=== PATIENT | male | born 1980 | race Caucasian/White ===

== ENCOUNTER 2020-03-26 08:51 | Outpatient (REF) | payer MEDICAID, SELFPAY ==
--- NOTE | 2020-03-26 09:01 | XR_ITS ---
EXAMINATION: XR ELBOW, LEFT CLINICAL INFORMATION: Pain COMPARISON: None TECHNIQUE: AP, lateral, and oblique views of the left elbow. FINDINGS: Bone alignment is normal. No fracture or dislocation is seen. The joint spaces are normal. There is an osteophyte at the triceps tendon insertion to the olecranon. XR/XR elbow LT min 3V IMPRESSION: Small osteophyte at the triceps tendon insertion to the olecranon.
== END 2020-03-26 08:52 | disposition home or self-care (01) ==
LOC: HO.XRAY 08:51
PROVIDERS: Visit Provider Internal Medicine Geriatric Medicine
DX: M25.522 Pain in left elbow (principal)
CPT/HCPCS: 73080

== ENCOUNTER 2020-05-12 12:30 | Emergency (ER) | payer MEDICAID, SELFPAY ==
--- NOTE | 2020-05-12 13:01 | XR_ITS ---
EXAMINATION: XR HAND, RIGHT CLINICAL INFORMATION: Crush injury COMPARISON: None TECHNIQUE: PA, lateral, and oblique views of the right hand. FINDINGS: Specific attention was given to the third digit. Bones are normal anatomic alignment. I do not appreciate any acute fracture or dislocation. There is old bony deformity to the fifth distal metacarpal consistent with an old healed fracture. There is also a subtle bony deformity along the proximal first carpal suggesting old healed injury as well. Soft tissues are unremarkable. No radiopaque foreign body seen. XR/XR hand RT 2V IMPRESSION: No acute fracture or dislocation.
--- NOTE | 2020-05-12 13:04 | ED_ITS ---
HPI - Extremity Problem General Chief complaint: Extremity Injury, Upper Stated complaint: HAND PAIN Time Seen by Provider: 05/12/20 13:01 Source: patient Mode of arrival: ambulatory Limitations: no limitations History of Present Illness HPI Narrative: 40-year-old male here with right hand pain. 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 Of note the patient tells me he also has chronic left elbow pain. He tells me he had a previous work injury there and is supposed to see assessment specialist in May. His last x-ray 03/26/2020. No new injury or trauma since then. Patient also complaining of left ear pain which he noticed x2 days. No cough, no ear discharge, no congestion MD Complaint: extremity pain and extremity swelling Onset (ago): hour(s) Pain Consistency: constant Location: right (3rd finger ) Quality: aching and crushing Radiation: none Relieving factors: nothing Exacerbating factors: nothing Associated symptoms: denies other symptoms Related Data Previous Rx's Medication Instructions Recorded amoxicillin 500 mg PO Q12H #20 cap 05/12/20 ibuprofen 600 mg PO Q8H PRN #20 tab 05/12/20 Allergies Allergy/AdvReac Type Severity Reaction Status Date / Time No Known Allergies Allergy Verified 05/12/20 13:01 Review of Systems Review of Systems: Yes all other systems are reviewed and are negative Constitutional: Constitutional: Reports no additional constitutional complaints, Denies body ache(s), Denies chills, Denies fever(s), Denies headache(s) and Denies weakness Eyes: Eyes: Reports no additional eye complaints and Denies change in vision ENT: Reports system reviewed and no additional complaints, except as documented, Denies dizziness, Reports otalgia, Denies headache(s), Denies nasal congestion, Denies nasal discharge and Denies neck pain Cardiovascular: Cardiovascular: Reports no additional cardiovascular complaints, Denies chest pain, Denies leg edema and Denies dyspnea Respiratory: Respiratory: Reports no additional respiratory complaints, Denies cough and Denies dyspnea Gastrointestinal: Gastrointestinal: Reports no additional gastrointestinal complaints, Denies abdominal pain, Denies diarrhea, Denies nausea and Denies vomiting Genitourinary: Genitourinary: Denies urinary incontinence Musculoskeletal: Musculoskeletal: Reports no additional musculoskeletal complaints, Denies back pain, Reports arthralgias, Denies joint swelling, Denies neck pain, Denies numbness and Denies tingling Integumentary/Breasts: Skin/Breast: Reports system reviewed and no additional complaints, except as docu and Denies rash Neurologic: Reports system reviewed and no additional complaints, except as documented, Denies Abnormal speech present, Denies dizziness, Denies headache(s), Denies numbness, Denies tingling and Denies weakness PMF Past Medical History Attestation statement: The following information was validated with the patient. Source: old records reviewed and nursing notes reviewed Social History Social History Alcohol intake: never Smoking Status: Never smoker Use of substances other than those prescribed or required for medical reasons: No Advance Directives: No Advance Directives Information Provided: Yes Physical Exam Vital Signs: Vital Signs: Last Vital Signs Temp 98.2 F 05/12/20 13:05 Pulse 72 05/12/20 13:05 Resp 18 05/12/20 13:05 BP 125/74 05/12/20 13:05 Pulse Ox 98 05/12/20 13:05 Body Mass Index 28.3 Const: General: cooperative, healthy appearing, comfortable and no acute distress Orientation/consciousness: patient oriented x3 Limitations: no limitations HENMT: Head: Yes normal to inspection Ears: hearing grossly normal bilaterally and TM abnormal (Left) bulging, erythematous and with loss of landmarks General nose exam: Normal external nose present Face and sinus: Yes normal facial exam Mouth: Normal oral and palatal mucosa present Throat: Yes posterior oropharynx normal Eyes: General: appearance normal, both eyes and all related structures Pupils: Equal, round and reactive pupils present Neck: Neck: Yes normal visual inspection Chest: Chest palpation & inspection: normal inspection of the chest Resp: Effort & Inspection: normal respiratory effort Auscultation: clear to auscultation bilaterally Cardio: Rate: regular rate Rhythm: regular rhythm Peripheral pulses: Peripheral pulses 2+ throughout GI: Inspection: Yes normal to inspection Palpation (GI): Soft to palpation and nontender Auscultation: normal bowel sounds Back/Spine/Pelvis: Thoracic/Lumbar Spine: thoracic and lumbar spine normal to inspection Skin: General skin exam: no rashes or lesions noted Neuro: General: patient oriented x3, no focal motor deficits and normal sensation to monofilament Cranial nerves: Yes Equal, round and reactive pupils present Cognition (Neuro): normal cognition Speech: No Abnormal speech present Gait exam (Neuro): Normal gait present Motor exam (neuro): 5/5 motor strength present throughout Extrem: Other: Third digit right hand with moderate swelling and tenderness throughout the digit. Normal cap refill. No numbness or tingling or loss of sensation. Patient is able to flex the finger but does have pain. No difficulty extending the finger Lateral left elbow tenderness which is mild. Full range of motion. No swelling, redness or warmth General: Yes normal to inspection Course Course Course Narrative: Right hand 3rd digit finger pain status post injury at work. Will check imaging. Chronic left elbow pain from a previous work injury. No new injury or trauma. Has pending appointment with Orthopedics. Reviewed x-ray from 03/26/2020 which shows Small osteophyte at the triceps tendon insertion to the olecranon. No need for imaging with no new trauma. Recommended continue to follow up with repeated, supportive care at home. 1430-imaging negative. Likely contusion. Left AOM on exam. Reviewed findings with the patient. Reviewed worrisome signs and symptoms and when to return to the emergency department. Comfortable discharge home. MDM - Extremity (Nontraumatic) Medical Records Attestation: I reviewed the patient's medical records. Lab Data Attestation: I reviewed the patient's lab results. Imaging Data hand: Attestation: I personally reviewed and interpreted this imaging study as follows: Radiologist's impression: EXAMINATION: XR HAND, RIGHT CLINICAL INFORMATION: Crush injury COMPARISON: None TECHNIQUE: PA, lateral, and oblique views of the right hand. FINDINGS: Specific attention was given to the third digit. Bones are normal anatomic alignment. I do not appreciate any acute fracture or dislocation. There is old bony deformity to the fifth distal metacarpal consistent with an old healed fracture. There is also a subtle bony deformity along the proximal first carpal suggesting old healed injury as well. Soft tissues are unremarkable. No radiopaque foreign body seen. XR/XR hand RT 2V IMPRESSION: No acute fracture or dislocation. Discharge Plan Discharge Clinical Impression: Otitis media Qualifiers: Otitis media type: unspecified Chronicity: acute Qualified Code(s): H66.90 - Otitis media, unspecified, unspecified ear Contusion Qualifiers: Encounter type: initial encounter Contusion area: hand Laterality: right Qualified Code(s): S60.221A - Contusion of right hand, initial encounter Patient Disposition: Home, Self-Care Instructions: Ear Infection (ED), Contusion in Adults (ED) Additional Instructions: iCE TO THE AREA Prescriptions: New amoxicillin 500 mg capsule 500 mg PO Q12H Qty: 20 RF: 0 ibuprofen 600 mg tablet 600 mg PO Q8H PRN (Reason: pain) Qty: 20 RF: 0 Referrals: Lori Tee [employer] [Primary Care Provider] - 2 days Stand Alone Forms: Work/School Release Interventions: ED Discharge Assessment Last Done: 05/12/20 14:40 Discharge Date/Time: 05/12/20 14:41
[2020-05-12 13:05] VITALS: BP 125/74; PULSE 72; RESP 18; TEMP 36.8; O2SAT 98; BMI 28.3
== END 2020-05-12 14:41 | disposition home or self-care (01) ==
PROVIDERS: Emergency Provider Emergency Medicine; PCP Nurse Practitioner Primary Care
DX: S60.221A Contusion of right hand, initial encounter (principal); H66.90 Otitis media, unspecified, unspecified ear; H92.02 Otalgia, left ear; M79.641 Pain in right hand; Y29.XXXA Contact with blunt object, undetermined intent, initial encounter; Y93.9 Activity, unspecified; Y92.9 Unspecified place or not applicable; Y99.0 Civilian activity done for income or pay
CPT/HCPCS: 73120; 99283

== ENCOUNTER → 2020-06-04 08:59 | Outpatient (BNVA) | payer MEDICAID, SELFPAY | PROVIDERS: PCP Nurse Practitioner Primary Care; Referring Provider Nurse Practitioner Primary Care; Visit Provider Orthopaedic Surgery | DX: M25.522 Pain in left elbow (principal); S60.221A Contusion of right hand, initial encounter | CPT/HCPCS: 99202 ==

== ENCOUNTER 2020-06-26 17:10 | Outpatient (REF) | payer MEDICAID, SELFPAY ==
--- NOTE | 2020-06-26 | MR_ITS ---
EXAMINATION: MR ELBOW WITHOUT CONTRAST, LEFT CLINICAL INFORMATION: Left elbow pain for 5 months. Patient reports a recent injury. COMPARISON: XR left elbow 03/26/2020. TECHNIQUE: MRI of the left elbow was performed using routine sequences on a high-field scanner. FINDINGS: Ulnar collateral ligament: Intact. Common flexor tendon: There is a small focal area of increased T2 signal at the origin of the common flexor tendon suggesting mild tendinosis. Radial collateral ligament: Intact. Common extensor tendon: There is focal increased T2 signal at the origin of the common extensor tendon consistent with tendinosis. There is also a tiny interstitial tear best seen on the coronal images, measuring 2 mm craniocaudal. Biceps/triceps tendon: Intact. Articular cartilage/bone: Intact. Ulnar nerve: Intact. Joint fluid/soft tissues: Within normal limits. MR/MR elbow LT wo con IMPRESSION: 1. Minor proximal common flexor tendinosis. 2. Mild proximal common extensor tendinosis with tiny interstitial tear.
== END 2020-06-26 17:11 | disposition home or self-care (01) ==
LOC: HO.MRI 17:10
PROVIDERS: Visit Provider Orthopaedic Surgery
DX: M25.522 Pain in left elbow (principal)
CPT/HCPCS: 73221

== ENCOUNTER → 2020-07-04 10:42 | Outpatient (BNVA) | payer MEDICAID, SELFPAY | PROVIDERS: PCP Nurse Practitioner Primary Care; Visit Provider Orthopaedic Surgery | DX: M77.12 Lateral epicondylitis, left elbow (principal); M25.522 Pain in left elbow; S60.221A Contusion of right hand, initial encounter | CPT/HCPCS: 20551; J1020 ==

== ENCOUNTER 2020-07-19 09:49 | Outpatient (REF) | payer MEDICAID, SELFPAY ==
--- NOTE | 2020-07-19 09:52 | EMG_ITS ---
Left median and ulnar motor and sensory studies were performed. Left radial sensory study was performed. Left median and lateral antecubital brachial sensory studies were performed and needle examination was performed and some muscles. IMPRESSION: No evidence of entrapment neuropathy in left hand. There was evidence of mild left lower cervical radiculopathy. MD XIMENA Manrique/KIEL / [id number]
== END 2020-07-19 09:50 | disposition home or self-care (01) ==
LOC: HO.NEURO 09:49
PROVIDERS: PCP Nurse Practitioner Primary Care; Visit Provider Orthopaedic Surgery
DX: M25.522 Pain in left elbow (principal)
CPT/HCPCS: 95886; 95910

== ENCOUNTER → 2020-07-30 12:39 | Outpatient (BNVA) | payer MEDICAID, SELFPAY | PROVIDERS: Visit Provider Orthopaedic Surgery | DX: M77.12 Lateral epicondylitis, left elbow (principal); M25.522 Pain in left elbow | CPT/HCPCS: 99212 ==

== ENCOUNTER 2020-10-08 11:30 | Outpatient (RCR) | payer MEDICAID, SELFPAY ==
--- NOTE | 2020-08-13 09:53 | MHC.OT.OEV ---
[address] [phone] F: [phone] Occupational Therapy Evaluation Diagnosis: Left Lateral Epicondylitis Date of Onset: 12/24/19 Attending Provider: Dr. Lopez Prescribed Treatment: Laura and Akil SAUCEDO Follow Up Appointment: History of Current Condition: Pt was at work, removing cargo pallets, reported onset of worsening pain in his left elbow, went to [facility] but was not referred to OT at that time. Now referred from [facility]. Pt also reports issues in his right hand and left hand at the time, still reports pain present in these areas too. Patient Goals: To get better so he can work Hand Dominance: Right Prior Level of Function and Occupation Self Care, Employment, Leisure: Unemployed/Disability Living Situation, Family and/or Social Support: Lives alone, Independent Current Level of Function and Occupation Self Care, Employment, Leisure: Some difficulty cooking meals and with bathing, bothers him to bend his elbow and with forceful use Sleep: Cramping down his lower left arm when sleeping, numbness in left hand Driving: Ind w/ driving, uses right hand Pain Assessment Pain Score: 9 Pain Scale Used: Numeric (0 - 10) Pain Location and Description: Constant pain in left elbow, points to lateral and medial epicondyle, radiates down forearm Tender to palpate left lateral elbow Aggravating Factors: Pain w/ straightening and bending elbow Alleviating Factors: Pain patch to left lateral elbow (does not recall the name) Nerve assessment Ulnar Nerve: WFL Median Nerve: WFL Radial Nerve: WFL Sensory Assessment Comments: Pt reports nighttime numbness radiating down forearm and into digits Edema Assessment Upper Extremity: WNL Dexterity Assessment Dexterity: WFL Special Tests Comments: Pain in left lat epi w/ resisted wrist ext AROM(PROM) Strength Shoulder Flexion: Extension: Abduction: Internal Rotation: External Rotation: Comments: WNL Flexion: Extension: Abduction: Internal Rotation: External Rotation: Comments: Elbow Flexion: R 145 L 145 Extension: R 0 L 10 Pronation: Supination: Comments: Flexion: Extension: Pronation: Supination: Comments: Wrist Flexion: Extension: Ulnar Deviation: Radial Deviation: Comments: WNL Flexion: B/L 5/5 Extension: B/L 5/5 Ulnar Deviation: Radial Deviation: Comments: Digits Index MCP: PIP: DIP: Long MCP: PIP: DIP: Ring MCP: PIP: DIP: Small MCP: PIP: DIP: Comments: Gross Grasp: R 95 L 40 Lateral Pinch: Two-Point Pinch: Three-Jaw Devaughn: Comments: Left tested with elbow flex (40lb) and ext (5lb w/ high pain) Patient Education Primary Language: Sponge Packer Required: Yes Current Knowledge: Understands information with skills for self-management Teaching Method: Audio/Video Demonstration Handouts Verbal Education Needs Identified on Evaluation: ADL's Disease Information Equipment Use Exercise Pain Safety How did patient/family demonstrate learning? Patient demonstrates Patient verbalizes Barriers to Learning: None Readiness for Learning: Accepting Who was educated? 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 He states he went to [facility] initially and recently was referred to [facility] and now to OT for conservative treatment of lateral epicondylitis. On assessment, he notes pain in left lateral elbow, radiating posteriorly to olecronon and distally to forearm. Symptoms worse with heavy use and elbow extension, also with forearm and hand numbness at nighttime. Elbow and wrist strength WNL, but left gross grasp is significantly impaired and worse w/ elbow in extension. He has been given counter force brace from ortho and will benefit from cont'd OT services for progression of strengthening w/ focus on activity modication and joint protection, pt's ultimate goal is to return to work. STG Duration: 2 wks Short Term Goals: Ind w CFB wear Ind w/ nighttime modifications for improved sleep Ind w/ HEP Pt to report <5/10 resting pain in left arm/elbow Left gross grasp >50lb LTG Duration: 4 wks Prison Goals: Full elbow extension <2/10 pain at rest <4/10 pain w/ moderate activity Pt to demo lift and carry 25lb box w/ ease Gross grasp >80lb Ind w/ progression of eccentric strengthening program Frequency and Duration: The patient will be seen 2/xwk for 4 weeks Treatment Plan: Therapeutic Exercise Therapeutic Activity Home Exercise Program Splinting Patient Education Edema Control ADL Training Ultrasound Iontophoresis MHP Cold Packs Soft Tissue Mobilization Kinesiotaping Nighttime resting wrist splint PRN Electronically Signed By: Ludivina Zapka, OTR/L Please sign and return to therapist, Thank you for your referral.
--- NOTE | 2020-10-08 13:09 | MHC.OT.DC ---
[address] [phone] F: [phone] Occupational Therapy Discharge Note Provider: Dr Lopez Diagnosis: Left Lateral Epicondylitis Date of Evaluation: 08/13/20 Date of Discharge: 10/08/20 Treatments to Date: 14 Cancellations to Date: 0 No Shows to Date: 0 Discharge Status: Independent with HEP Recommend MD Follow-up Discharge Summary: Rodney has some improvements in pain and strength, but consistently reports moderate pain in left lateral and medial epicondyles, he states the pain comes and goes. Reports good follow through w/ HEP and CFB wear. We have reached a plateau in tx at this time, he is scheduled to see a chiropractor this week. Recommend refer back to ortho if no change in the next month w/ chiropractor trial. Electronically Signed By: LUIS ARMANDO Buitrago/Randy Reviewed/agree with student documentation: N/A Therapist: Please Sign and return to therapist, thank you for your referral.
== END 2020-10-08 13:11 | disposition other institution (70) ==
LOC: HO.OT 11:30
PROVIDERS: PCP Nurse Practitioner Primary Care; Visit Provider Orthopaedic Surgery
DX: M77.12 Lateral epicondylitis, left elbow (principal)
CPT/HCPCS: 29125; 97033; 97035; 97110; 97140; 97165; 97760

== ENCOUNTER 2021-01-21 13:08 | Outpatient (RCR) | payer MEDICAID, SELFPAY | END 2021-01-23 11:00 | disposition home or self-care (01) | LOC: HO.OT 13:08 | PROVIDERS: PCP Nurse Practitioner Primary Care; Visit Provider Nurse Practitioner Primary Care | DX: M77.12 Lateral epicondylitis, left elbow (principal) | CPT/HCPCS: 97110; 97166 ==

== ENCOUNTER 2021-02-04 07:48 | Outpatient (RCR) | payer MEDICAID, SELFPAY | END 2021-09-24 10:51 | disposition home or self-care (01) | LOC: HO.OT 07:48 | PROVIDERS: PCP Nurse Practitioner Primary Care; Visit Provider Nurse Practitioner Primary Care | DX: M79.641 Pain in right hand (principal); M25.511 Pain in right shoulder; M25.512 Pain in left shoulder; M54.9 Dorsalgia, unspecified | CPT/HCPCS: 97165 ==

== ENCOUNTER 2021-02-14 11:59 | Outpatient (REF) | payer MEDICAID, SELFPAY ==
--- NOTE | ~2021-02-14 | XR_ITS ---
EXAMINATION: XR SHOULDER, RIGHT XR SHOULDER, LEFT CLINICAL INFORMATION: Pain COMPARISON: None TECHNIQUE: 4 views of the right shoulder 4 views left shoulder FINDINGS: RIGHT: No acute visible fracture or dislocation. Joint spaces and alignment are maintained. Soft tissues are unremarkable. Visualized portions of the right chest are unremarkable. LEFT: No acute visible fracture or dislocation. Joint spaces and alignment are maintained. Soft tissues are unremarkable. Visualized portions of the left chest are unremarkable. XR/XR shoulder LT min 2V IMPRESSION: No acute visible fracture or dislocation.
--- NOTE | ~2021-02-14 | XR_ITS ---
EXAMINATION: XR SHOULDER, RIGHT XR SHOULDER, LEFT CLINICAL INFORMATION: Pain COMPARISON: None TECHNIQUE: 4 views of the right shoulder 4 views left shoulder FINDINGS: RIGHT: No acute visible fracture or dislocation. Joint spaces and alignment are maintained. Soft tissues are unremarkable. Visualized portions of the right chest are unremarkable. LEFT: No acute visible fracture or dislocation. Joint spaces and alignment are maintained. Soft tissues are unremarkable. Visualized portions of the left chest are unremarkable. XR/XR shoulder RT min 2V IMPRESSION: No acute visible fracture or dislocation.
== END 2021-02-14 12:00 | disposition home or self-care (01) ==
LOC: HO.XRAY 11:59
PROVIDERS: PCP Nurse Practitioner Primary Care; Visit Provider Nurse Practitioner Primary Care
DX: M25.511 Pain in right shoulder (principal); M25.512 Pain in left shoulder
CPT/HCPCS: 73030

== ENCOUNTER 2021-03-14 15:00 | Outpatient (RCR) | payer MEDICAID, SELFPAY | END 2021-03-20 15:00 | disposition home or self-care (01) | LOC: HO.PT 15:00 | PROVIDERS: PCP Nurse Practitioner Primary Care; Visit Provider Nurse Practitioner Primary Care | DX: M79.641 Pain in right hand (principal) | CPT/HCPCS: 97110; 97112; 97162; 97530 ==

== ENCOUNTER 2021-05-01 15:00 | Outpatient (RCR) | payer MEDICAID, SELFPAY | END 2021-08-20 14:10 | disposition home or self-care (01) | LOC: HO.PT 15:00 | PROVIDERS: PCP Nurse Practitioner Primary Care; Visit Provider Physician Assistant | DX: M77.8 Other enthesopathies, not elsewhere classified (principal); M25.512 Pain in left shoulder; M25.511 Pain in right shoulder | CPT/HCPCS: 97110; 97161 ==

== ENCOUNTER 2021-07-05 15:35 | Outpatient (REF) | payer MEDICAID, SELFPAY ==
--- NOTE | ~2021-07-05 | US_ITS ---
EXAMINATION: US SCROTUM CLINICAL INFORMATION: Right testicular swelling, left testicular pain. COMPARISON: None TECHNIQUE: A sonogram of the scrotum was performed assessing amos-scale appearance and color Doppler flow. Spectral Doppler analysis of the arterial and venous flow were performed in the testes bilaterally. FINDINGS: RIGHT: Right testicle measures 4.0 x 2.5 x 2.9 cm, volume 15.5 mL. No focal testicular parenchymal lesions are visualized. Spectral Doppler analysis of the arterial and venous flow is normal in the right testis. Right epididymal head is normal in size. No right varicocele is seen. There is a right hydrocele. Right epididymal Doppler flow is normal. LEFT: Left testicle measures 3.3 x 2.2 x 2.4 cm, volume 9.1 mL. No focal testicular parenchymal lesions are visualized. Spectral Doppler analysis of the arterial and venous flow is normal in the left testis. Left epididymal head is normal in size. No left varicocele is seen. There is a small left hydrocele. Left epididymal Doppler flow is normal. US/US scrotum IMPRESSION: Bilateral hydroceles, right greater than left.
== END 2021-07-05 15:36 | disposition home or self-care (01) ==
LOC: HO.US 15:35
PROVIDERS: Visit Provider Nurse Practitioner Family
DX: N50.812 Left testicular pain (principal)
CPT/HCPCS: 76870

== ENCOUNTER 2023-01-20 15:57 | Outpatient (REF) | payer MEDICAID, SELFPAY ==
[2023-01-20 17:30] LABS: MANUAL DIFF FLAG NO
[2023-01-20 17:35] LABS: Basophils Absolute Auto 0.1 X10*3/uL (0.0-0.2); Basophils Percent Auto 1.2 % (0-2); Eosinophils Absolute Auto 0.2 X10*3/uL (0.0-0.4); Hematocrit 45.8 % (42.0-52.0); Hemoglobin 15.3 g/dl (14.0-18.0); Imm Gran Abs Auto 0.01 X10*3/uL (0.00-0.03); Imm Gran Pct Auto 0.2 % (0.0-0.4); Lymphocytes Absolute Auto 1.8 X10*3/uL (1.2-4.9); Lymphocytes Percent Auto 30.3 % (20-40); Mean Corpuscular HGB Conc 33.4 g/dl (31.0-36.0); Mean Corpuscular Hemoglobin 30.4 pg (27.0-33.0); Mean Corpuscular Volume 91.1 fL (80.0-98.0); Mean Platelet Volume 9.6 fL (9.4-12.4); Monocytes Absolute Auto 0.6 X10*3/uL (0.1-1.2); Monocytes Percent Auto 9.2 % (2-11); Neutrophils Absolute Auto 3.3 x10*3/uL (2.0-8.3); Neutrophils Percent Auto 55.1 % (45-73); Platelet Count 293 X10*3/uL (160-400); Red Blood Count 5.03 X10*6/uL (4.60-5.80)
[2023-01-20 17:47] LABS: Alanine Aminotransferase 27 U/L (0-40); Albumin Level 4.5 g/dL (3.5-5.0); Alkaline Phosphatase 76 U/L (39-117); Anion Gap 9 (12-20); Aspartate Amino Transferase 45 U/L (5-37); Bilirubin Total 0.5 mg/dL (0.0-1.0); Blood Urea Nitrogen 20 mg/dL (9-16); Carbon Dioxide 29 mmol/L (22-29); Chloride 107 mmol/L (96-108); Estimated Glomerular Filt Rate > 60; Glucose Random 74 mg/dL (60-115); Potassium 3.7 mmol/L (3.3-5.1); Sodium 141 mmol/L (135-145); Total Protein 8.1 g/dL (6.5-8.0)
[2023-01-21 11:13] LABS: Absolute CD3 Count 1237 cells/uL (840-3060); Absolute CD4 Count 700 cells/uL (490-1740); Absolute CD8 Count 526 cells/uL (180-1170); Absolute Lymphocytes 1841 cells/uL (850-3900); CD4 CD8 Ratio 1.33 (0.86-5.00); Percent CD3 Cells 67 % (57-85); Percent CD4 Cells 38 % (30-61); Percent CD8 Cells 29 % (12-42)
[2023-01-21 15:44] LABS: HIV RNA PCR Qn Copies 253 copies/mL (NOT DETECTED)
== END 2023-01-20 15:58 | disposition home or self-care (01) ==
LOC: HO.HHCL 15:57
PROVIDERS: Visit Provider Internal Medicine
DX: B20 Human immunodeficiency virus [HIV] disease (principal)
CPT/HCPCS: 36415; 80053; 85025; 86359; 86360; 87536

== ENCOUNTER 2023-06-08 09:29 | Outpatient (REF) | payer MEDICAID, SELFPAY ==
[2023-06-08 09:41] LABS: MANUAL DIFF FLAG NO
[2023-06-08 09:58] LABS: Basophils Absolute Auto 0.1 X10*3/uL (0.0-0.2); Basophils Percent Auto 1.9 % (0-2); Eosinophils Absolute Auto 0.2 X10*3/uL (0.0-0.4); Eosinophils Percent Auto 4.3 % (0-4); Hematocrit 46.5 % (42.0-52.0); Hemoglobin 15.7 g/dl (14.0-18.0); Imm Gran Abs Auto 0.01 X10*3/uL (0.00-0.03); Imm Gran Pct Auto 0.3 % (0.0-0.4); Lymphocytes Absolute Auto 1.3 X10*3/uL (1.2-4.9); Lymphocytes Percent Auto 35.5 % (20-40); Mean Corpuscular HGB Conc 33.8 g/dl (31.0-36.0); Mean Corpuscular Hemoglobin 30.5 pg (27.0-33.0); Mean Corpuscular Volume 90.5 fL (80.0-98.0); Mean Platelet Volume 9.2 fL (9.4-12.4); Monocytes Absolute Auto 0.4 X10*3/uL (0.1-1.2); Monocytes Percent Auto 11.2 % (2-11); Neutrophils Absolute Auto 1.8 x10*3/uL (2.0-8.3); Neutrophils Percent Auto 46.8 % (45-73); Platelet Count 274 X10*3/uL (160-400); Red Blood Count 5.14 X10*6/uL (4.60-5.80); Red Cell Distribution Width 12.8 % (11.0-16.0); White Blood Count 3.8 X10*3/uL (4.8-10.8)
[2023-06-08 10:38] LABS: Alanine Aminotransferase 31 U/L (0-40); Albumin Level 4.2 g/dL (3.5-5.0); Alkaline Phosphatase 79 U/L (39-117); Anion Gap 8 (12-20); Aspartate Amino Transferase 26 U/L (5-37); Bilirubin Total 0.8 mg/dL (0.0-1.0); Blood Urea Nitrogen 12 mg/dL (9-16); Calcium 9.3 mg/dL (8.4-10.2); Carbon Dioxide 29 mmol/L (22-29); Chloride 107 mmol/L (96-108); Cholesterol 158 mg/dL (<200); Estimated Glomerular Filt Rate > 60; Glucose Random 92 mg/dL (60-115); HDL Cholesterol 46 mg/dL (>40); LDL Cholesterol Calculated 101 mg/dL (<100); Potassium 3.9 mmol/L (3.3-5.1); Sodium 140 mmol/L (135-145); Total Protein 7.9 g/dL (6.5-8.0); Triglycerides 59 mg/dL (<150)
[2023-06-08 12:13] LABS: Reflex LDLD? No
[2023-06-09 10:03] LABS: Absolute CD3 Count 983 cells/uL (840-3060); Absolute CD4 Count 566 cells/uL (490-1740); Absolute CD8 Count 413 cells/uL (180-1170); Absolute Lymphocytes 1610 cells/uL (850-3900); CD4 CD8 Ratio 1.37 (0.86-5.00); Percent CD3 Cells 61 % (57-85); Percent CD4 Cells 35 % (30-61); Percent CD8 Cells 26 % (12-42)
[2023-06-09 11:19] LABS: RPR Rapid Plasma Reagin NON-REACTIVE (NON-REACTIVE)
[2023-06-09 16:09] LABS: HIV RNA PCR Qn Copies NOT DETECTED copies/mL (NOT DETECTED); HIV RNA PCR Qn Log Copies NOT DETECTED (NOT DETECTED)
== END 2023-06-08 09:30 | disposition home or self-care (01) ==
LOC: HO.LAB 09:29
PROVIDERS: Visit Provider Internal Medicine
DX: Z21 Asymptomatic human immunodeficiency virus [HIV] infection status (principal)
CPT/HCPCS: 36415; 80053; 80061; 85025; 86359; 86360; 86592; 87536

== ENCOUNTER 2023-12-24 09:38 | Outpatient (REF) | payer MEDICAID, SELFPAY ==
[2023-12-24 11:11] LABS: MANUAL DIFF FLAG NO
[2023-12-24 11:17] LABS: Basophils Absolute Auto 0.1 X10*3/uL (0.0-0.2); Basophils Percent Auto 1.7 % (0-2); Eosinophils Absolute Auto 0.1 X10*3/uL (0.0-0.4); Eosinophils Percent Auto 2.9 % (0-4); Hematocrit 45.1 % (42.0-52.0); Hemoglobin 15.4 g/dl (14.0-18.0); Lymphocytes Absolute Auto 1.2 X10*3/uL (1.2-4.9); Lymphocytes Percent Auto 29.2 % (20-40); Mean Corpuscular HGB Conc 34.1 g/dl (31.0-36.0); Mean Corpuscular Hemoglobin 31.2 pg (27.0-33.0); Mean Corpuscular Volume 91.5 fL (80.0-98.0); Mean Platelet Volume 9.3 fL (9.4-12.4); Monocytes Absolute Auto 0.5 X10*3/uL (0.1-1.2); Neutrophils Absolute Auto 2.2 x10*3/uL (2.0-8.3); Neutrophils Percent Auto 54.2 % (45-73); Platelet Count 263 X10*3/uL (160-400); Red Blood Count 4.93 X10*6/uL (4.60-5.80); Red Cell Distribution Width 13.3 % (11.0-16.0); White Blood Count 4.1 X10*3/uL (4.8-10.8)
[2023-12-24 11:31] LABS: Alanine Aminotransferase 53 U/L (0-40); Albumin Level 4.4 g/dL (3.5-5.0); Alkaline Phosphatase 81 U/L (39-117); Anion Gap 11 (12-20); Aspartate Amino Transferase 84 U/L (5-37); Bilirubin Total 1.5 mg/dL (0.0-1.0); Blood Urea Nitrogen 23 mg/dL (9-16); Calcium 10.1 mg/dL (8.4-10.2); Carbon Dioxide 28 mmol/L (22-29); Chloride 105 mmol/L (96-108); Estimated Glomerular Filt Rate > 60; Glucose Random 88 mg/dL (60-115); Sodium 140 mmol/L (135-145); Total Protein 8.1 g/dL (6.5-8.0)
[2023-12-24 11:45] LABS: Syphilis Screen Nonreactive (Nonreactive)
[2023-12-24 11:53] LABS: HBS Num1 64.36 mIU/mL (0-7.99); ~HepC Num1 0.17 S/CO (0.00-0.79); ~Hepatitis B Surface Antibody REACTIVE (Nonreactive); ~Hepatitis C Antibody Nonreactive (Nonreactive)
[2023-12-26 19:13] LABS: HIV RNA PCR Qn Copies 43 copies/mL (NOT DETECTED); HIV RNA PCR Qn Log Copies 1.63 (NOT DETECTED)
[2023-12-27 09:43] LABS: TS Negative Control Passed; TS Panel A 0; TS Panel B 0; TS Positive Control Passed; TSpotTB Negative (Negative)
[2023-12-29 14:54] LABS: Absolute CD3 Count 747 cells/uL (840-3060); Absolute CD4 Count 429 cells/uL (490-1740); Absolute CD8 Count 304 cells/uL (180-1170); Absolute Lymphocytes 1265 cells/uL (850-3900); CD4 CD8 Ratio 1.41 (0.86-5.00); Percent CD3 Cells 59 % (57-85); Percent CD4 Cells 34 % (30-61); Percent CD8 Cells 24 % (12-42)
== END 2023-12-24 09:39 | disposition home or self-care (01) ==
LOC: HO.HHCL 09:38
PROVIDERS: Visit Provider Internal Medicine
DX: B20 Human immunodeficiency virus [HIV] disease (principal)
CPT/HCPCS: 36415; 80053; 85025; 86359; 86360; 86481; 86706; 86780; 86803; 87536

== ENCOUNTER 2024-02-12 15:54 | Outpatient (REF) | payer MEDICAID, SELFPAY ==
--- NOTE | ~2024-02-12 | XR_ITS ---
EXAMINATION: XR KNEE, LEFT CLINICAL INFORMATION: Pain COMPARISON: None available. TECHNIQUE: Four views of the left knee. FINDINGS: No fracture or joint effusion. Alignment is anatomic. Joint spaces are maintained. No abnormal soft tissue calcification. XR/XR knee LT 2V IMPRESSION: Normal left knee. Electronically signed by: Brandie Alfredo MD 02/12/2024 04:50 PM EDT
== END 2024-02-12 15:55 | disposition home or self-care (01) ==
LOC: HO.HHCX 15:54
PROVIDERS: Visit Provider Student in an Organized Health Care Education/Training Program
DX: M25.562 Pain in left knee (principal); G89.29 Other chronic pain
CPT/HCPCS: 73560

== ENCOUNTER 2024-07-12 12:50 | Outpatient (REF) | payer MEDICAID, SELFPAY ==
[2024-07-12 16:13] LABS: MANUAL DIFF FLAG NO
[2024-07-12 16:17] LABS: Basophils Absolute Auto 0.1 X10*3/uL (0.0-0.2); Eosinophils Absolute Auto 0.1 X10*3/uL (0.0-0.4); Hematocrit 48.3 % (42.0-52.0); Hemoglobin 16.2 g/dl (14.0-18.0); Imm Gran Abs Auto 0.01 X10*3/uL (0.00-0.03); Imm Gran Pct Auto 0.3 % (0.0-0.4); Lymphocytes Absolute Auto 1.2 X10*3/uL (1.2-4.9); Lymphocytes Percent Auto 30.2 % (20-40); Mean Corpuscular HGB Conc 33.5 g/dl (31.0-36.0); Mean Corpuscular Hemoglobin 30.5 pg (27.0-33.0); Mean Platelet Volume 9.4 fL (9.4-12.4); Monocytes Absolute Auto 0.4 X10*3/uL (0.1-1.2); Monocytes Percent Auto 8.9 % (2-11); Neutrophils Absolute Auto 2.2 x10*3/uL (2.0-8.3); Neutrophils Percent Auto 55.6 % (45-73); Platelet Count 358 X10*3/uL (160-400); Red Blood Count 5.31 X10*6/uL (4.60-5.80); Red Cell Distribution Width 12.9 % (11.0-16.0); White Blood Count 3.9 X10*3/uL (4.8-10.8)
[2024-07-12 16:26] LABS: Alanine Aminotransferase 42 U/L (0-40); Albumin Level 4.3 g/dL (3.5-5.0); Alkaline Phosphatase 94 U/L (39-117); Anion Gap 10 (12-20); Aspartate Amino Transferase 31 U/L (5-37); Bilirubin Total 0.6 mg/dL (0.0-1.0); Blood Urea Nitrogen 16 mg/dL (9-16); Calcium 9.6 mg/dL (8.4-10.2); Carbon Dioxide 30 mmol/L (22-29); Chloride 107 mmol/L (96-108); Cholesterol 167 mg/dL (<200); Estimated Glomerular Filt Rate > 60; Glucose Random 65 mg/dL (60-115); HDL Cholesterol 39 mg/dL (>40); LDL Cholesterol Calculated 104 mg/dL (<100); Potassium 3.9 mmol/L (3.3-5.1); Sodium 143 mmol/L (135-145); Total Protein 8.8 g/dL (6.5-8.0); Triglycerides 123 mg/dL (<150)
[2024-07-12 16:55] LABS: Reflex LDLD? No
[2024-07-12 17:57] LABS: CT PCR NOT DETECTED (Not Detect.); NG PCR NOT DETECTED (Not Detect.)
[2024-07-13 08:26] LABS: ~Hepatitis A Antibody IgG 11.11 S/CO (0.00-0.99)
[2024-07-13 08:27] LABS: Hepatitis A Antibody IgG REACTIVE (Nonreactive)
[2024-07-13 12:53] LABS: HIV RNA PCR Qn Copies <20 DETECTED copies/mL (NOT DETECTED); HIV RNA PCR Qn Log Copies <1.30 DETECTED (NOT DETECTED)
[2024-07-15 16:39] LABS: Absolute CD3 Count 756 cells/uL (840-3060); Absolute CD4 Count 414 cells/uL (490-1740); Absolute CD8 Count 343 cells/uL (180-1170); Absolute Lymphocytes 1125 cells/uL (850-3900); CD4 CD8 Ratio 1.21 (0.86-5.00); Percent CD3 Cells 67 % (57-85); Percent CD4 Cells 37 % (30-61); Percent CD8 Cells 30 % (12-42)
== END 2024-07-12 12:51 | disposition home or self-care (01) ==
LOC: HO.HHCL 12:50
PROVIDERS: Visit Provider Internal Medicine
DX: Z21 Asymptomatic human immunodeficiency virus [HIV] infection status (principal)
CPT/HCPCS: 80053; 80061; 85025; 86359; 86360; 86708; 87491; 87536; 87591

== ENCOUNTER 2025-02-11 08:36 | Emergency (ER) | payer MEDICAID, SELFPAY ==
[2025-02-11 08:46] VITALS: BP 114/78; PULSE 68; RESP 16; TEMP 36.3; O2SAT 98; BMI 30.9
--- NOTE | 2025-02-11 09:15 | ED_ITS ---
HPI - General Adult General Chief complaint: Skin/Abscess/Foreign Body Stated complaint: Rash on left side of body Time Seen by Provider: 02/11/25 09:10 Source: patient and master baker Mode of arrival: ambulatory Limitations: no limitations History of Present Illness ED Provider: DR. Mays HPI narrative: 44-year-old male HIV positive came in for evaluation of left-sided body rash that is burning and painful for 6 days, no trauma, no fever, no chills, no headache, no photophobia, no neck stiffness, no coughing. No history of steroid use, no history of diabetes or any other immunocompromise condition. Related Data Previous Rx's ?Medication ?Instructions ?Recorded amoxicillin 500 mg capsule 500 mg PO Q12H #20 caps ibuprofen 600 mg tablet 600 mg PO Q8H PRN pain #20 t abs 05/12/20 gabapentin 400 mg tablet 400 mg PO TID PRN pain #14 t abs 02/11/25 Allergies Allergy/AdvReac Type Severity Reaction Status Date / Time No Known Allergies Allergy Verified 02/11/25 08:50 Review of Systems 2 Review of Systems: All other systems are reviewed and are negative Constitutional: Reports as per HPI and Reports no additional constitutional complaints Eyes: Reports as per HPI and Reports no additional eye complaints Reports system reviewed and no additional complaints, except as documented Cardiovascular: Reports as per HPI and Reports no additional cardiovascular complaints Respiratory: Reports as per HPI and Reports no additional respiratory complaints Gastrointestinal: Reports as per HPI and Reports no additional gastrointestinal complaints Genitourinary: Reports no additional female genitourinary complaints Musculoskeletal: Reports no additional musculoskeletal complaints Skin/Breast: Reports system reviewed and no additional complaints, except as docu Psychiatric: Reports no additional psychiatric complaints Endocrine: Reports no additional endocrine complaints Hematologic/Lymphatic: Reports no additional hematologic/lymphatic complaints Allergic/Immunologic: Reports no additional allergic/immunologic complaints Reports system reviewed and no additional complaints, except as documented and Reports Abnormal speech present [facility] Social History Social History Alcohol intake: never Advance Directives: No Advance Directives Information Provided: Yes Do you have a plan to hurt others: No Plan Current occupational status: unemployed Current occupation: [employer] Physical Exam ED Vital Signs: Vital Signs - 24 hr 02/11/25 08:46 02/11/25 09:45 Temperature 97.3 F 97.3 F Pulse Rate 68 66 Respiratory Rate 16 16 Blood Pressure 114/78 116/72 Pulse Oximetry 98 98 Oxygen Delivery Method Room Air Room Air BMI result Body Mass Index 30.9 Vital signs have been reviewed and appear to be correct. Blood pressure elevated. Heart rate normal. Respiratory rate normal. Temperature normal. Oxygen saturation normal. Appearance: Alert. Oriented X3. No acute distress. Head: Normal external exam. Normocephalic. Atraumatic. No Hogan signs noted. No raccoon eyes noted Eyes: PERRLA. EOMI. Conjunctiva and sclera normal. Eyelids normal. ENT: TM's Normal. Pharynx normal. Uvula midline. Moist mucous membranes. No trismus noted. No drooling noted. No muffled voice noted. Neck: Normal inspection. Neck supple. FROM. No adenopathy. Thyroid Normal. No meningeal signs. No neck mass noted. CVS: Normal heart rate and rhythm. Heart sound normal. No murmurs noted. Pulses normal throughout. Respiratory: No respiratory distress. Painless inspiration. Breath sounds normal. No wheezes/rales/rhonchi noted. Chest nontender. No accessory muscle usage noted or decreased air movement noted. Abdomen: Soft and nontender. Bowel sounds normal in all 4 quadrants. No distention noted. No organomegaly noted. No visible injury noted. Back: No CVA tenderness. Full range of motion noted. Skin: Maculopapular rash on erythematous base only affecting the left side do not exceed the midline. Extremities: No lower extremity edema. Extremities exhibit normal range of motion. Extremities nontender. Neuro: Oriented X 3. Cranial nerve exam: II-XII are grossly intact No motor deficit. No sensory deficit. Reflexes normal. Course Reevaluation(s) Reevaluation #1: Left side shingle x for 6 days, will reassure, pain medication and follow-up with PCP. Patient will not benefit from antiviral medication or prednisone since symptoms started more than 72 hours ago. Time: 09:35 Medical Decision Making Differential Diagnosis Differential Diagnoses: The differential diagnosis associated with the presentation includes (Herpes zoster, abscess, hives, allergic reaction.) Admission/Observation Consideration of admission/observation: Escalation of care including admission/observation considered Discharge Plan Discharge Clinical Impression: Shingles Patient Disposition: Home, Self-Care Instructions: Shingles (ED) Prescriptions: New gabapentin 400 mg tablet 400 mg PO TID PRN (Reason: pain) Qty: 14 0RF No Action amoxicillin 500 mg capsule 500 mg PO Q12H Qty: 20 0RF ibuprofen 600 mg tablet 600 mg PO Q8H PRN (Reason: pain) Qty: 20 0RF Referrals: Lori Tee, MARKET DEVELOPMENT DIRECTOR [Primary Care Provider, Internal Medicine] Interventions: ED Discharge Assessment Last Done: 02/11/25 09:45 Discharge Date/Time: 02/11/25 09:46 Print Language: Nepali
[2025-02-11 09:45] VITALS: BP 116/72; PULSE 66; RESP 16; TEMP 36.3; O2SAT 98
== END 2025-02-11 09:46 | disposition home or self-care (01) ==
PROVIDERS: Emergency Provider Emergency Medicine; PCP Nurse Practitioner Primary Care
DX: B02.9 Zoster without complications (principal)
CPT/HCPCS: 99282; 99283

== ENCOUNTER 2025-02-22 16:42 | Outpatient (REF) | payer MEDICAID, SELFPAY ==
[2025-02-22 17:09] LABS: MANUAL DIFF FLAG NO
[2025-02-22 17:19] LABS: Hematocrit 44.5 % (42.0-52.0); Hemoglobin 15.1 g/dl (14.0-18.0); Imm Gran Abs Auto 0.01 X10*3/uL (0.00-0.03); Imm Gran Pct Auto 0.2 % (0.0-0.4); Lymphocytes Absolute Auto 1.8 X10*3/uL (1.2-4.9); Mean Corpuscular HGB Conc 33.9 g/dl (31.0-36.0); Mean Corpuscular Hemoglobin 30.3 pg (27.0-33.0); Mean Corpuscular Volume 89.4 fL (80.0-98.0); NRBC Abs Auto 0.020 X10*3/uL (0.0-0.012); NRBC Pct Auto 0.4 /100WBC (0.0-0.2); Platelet Count 301 X10*3/uL (160-400); Red Blood Count 4.98 X10*6/uL (4.60-5.80); White Blood Count 5.2 X10*3/uL (4.8-10.8)
[2025-02-22 17:36] LABS: Alanine Aminotransferase 52 U/L (0-40); Albumin Level 4.5 g/dL (3.5-5.0); Alkaline Phosphatase 76 U/L (39-117); Anion Gap 9 (12-20); Aspartate Amino Transferase 42 U/L (5-37); Blood Urea Nitrogen 21 mg/dL (9-16); Calcium 9.5 mg/dL (8.4-10.2); Carbon Dioxide 30 mmol/L (22-29); Chloride 107 mmol/L (96-108); Cholesterol 152 mg/dL (<200); Estimated Glomerular Filt Rate > 60; HDL Cholesterol 41 mg/dL (>40); Potassium 3.7 mmol/L (3.3-5.1); Sodium 142 mmol/L (135-145); Total Protein 7.9 g/dL (6.5-8.0); Triglycerides 74 mg/dL (<150)
[2025-02-22 17:53] LABS: Reflex LDLD? No
[2025-02-23 04:31] LABS: Syphilis Screen Nonreactive (Nonreactive)
[2025-02-23 05:14] LABS: ~HepC Num1 0.12 S/CO (0.00-0.79); ~Hepatitis C Antibody Nonreactive (Nonreactive)
[2025-02-23 05:55] LABS: CT PCR Urine NOT DETECTED (Not Detect.); NG PCR Urine NOT DETECTED (Not Detect.)
[2025-02-23 15:29] LABS: HIV RNA PCR Qn Copies 22 copies/mL (NOT DETECTED); HIV RNA PCR Qn Log Copies 1.34 (NOT DETECTED)
[2025-02-25 11:38] LABS: TS Negative Control Passed; TS Panel A 2; TS Panel B 0; TS Positive Control Passed; TSpotTB Negative (Negative)
[2025-02-25 20:52] LABS: Absolute CD3 Count 1220 cells/uL (840-3060); Absolute CD8 Count 506 cells/uL (180-1170); Percent CD3 Cells 71 % (57-85); Percent CD8 Cells 29 % (12-42)
== END 2025-02-22 16:43 | disposition home or self-care (01) ==
LOC: HO.LAB 16:42
PROVIDERS: PCP Nurse Practitioner Primary Care; Visit Provider Internal Medicine
DX: Z01.84 Encounter for antibody response examination (principal); Z11.4 Encounter for screening for human immunodeficiency virus [HIV]; Z11.3 Encounter for screening for infections with a predominantly sexual mode of transmission; Z11.8 Encounter for screening for other infectious and parasitic diseases; Z11.59 Encounter for screening for other viral diseases; Z21 Asymptomatic human immunodeficiency virus [HIV] infection status
CPT/HCPCS: 80053; 80061; 85025; 86359; 86360; 86481; 86780; 86803; 87491; 87536; 87591